=== PATIENT | female | born 1965 | race Caucasian/White ===

== ENCOUNTER → 2017-08-02 | Outpatient (CLI) | payer OTHER | LOC: FIMAGING 15:23 | PROVIDERS: ATTEND Obstetrics & Gynecology Gynecology | DX: Z12.31 Encounter for screening mammogram for malignant neoplasm of breast (principal) | CPT/HCPCS: G0202 ==

== ENCOUNTER → 2018-04-18 | Outpatient (CLI) | payer OTHER | LOC: BMCIMAGING 09:45 | PROVIDERS: ATTEND Obstetrics & Gynecology Gynecology | DX: N63.11 Unspecified lump in the right breast, upper outer quadrant (principal); R59.9 Enlarged lymph nodes, unspecified ==

== ENCOUNTER → 2018-04-26 | Outpatient (CLI) | payer OTHER ==
[~2018-04-26] MED LIST: BUPIVACAINE 0.25% 30 ML SDV ONE; LIDOCAINE 1% 300 MG/30 ML SDV ONE
== END ==
LOC: FIMAGING 09:23
PROVIDERS: ATTEND Obstetrics & Gynecology Gynecology
PROC: 0HBT3ZX Excision of Right Breast, Percutaneous Approach, Diagnostic (ICD-10-PCS; principal; 2018-04-26)
PROC: 07B53ZX Excision of Right Axillary Lymphatic, Percutaneous Approach, Diagnostic (ICD-10-PCS; principal; 2018-04-26)
DX: C50.411 Malignant neoplasm of upper-outer quadrant of right female breast (principal); C77.3 Secondary and unspecified malignant neoplasm of axilla and upper limb lymph nodes

== ENCOUNTER 2018-05-22 16:30 | Emergency (ER) | payer OTHER ==
--- NOTE | 2018-05-22 16:56 | CPEKG ---
Heart Rate: 79 RR Interval: 759 P-R Interval: 140 QRSD Interval: 86 QT Interval: 372 QTC Interval: 427 P [place]: 86 QRS [place]: 69 T Wave [place]: 67 EKG Severity - NORMAL ECG - EKG Impression: SINUS RHYTHM Electronically Signed By: Donnie Ibarra 22-May-2018 17:01:01
--- NOTE | 2018-05-22 17:00 | EDPHY ---
H & P Stated Complaint: l arm post placed /now with l sided chest tightness Time Seen by Provider: 05/22/18 16:43 HPI/ROS: CHIEF COMPLAINT: Left-sided chest tightness HISTORY OF PRESENT ILLNESS: The patient is a 52-year-old female whose recently diagnosed with right-sided breast cancer. In preparation for chemotherapy she received a port in her left biceps region on . She has had significant pain and bruising in the area. She is also no noticing some left chest pressure for the last day and half. She is concerned because her friend of a PE a few months ago. She has not had a fever. She denies history of cardiac or pulmonary disease. She is not on any medications. REVIEW OF SYSTEMS: Constitutional: denies: chills, fever, recent illness, recent injury EENTM: denies: blurred vision, double vision, nose congestion Respiratory: denies: cough, shortness of breath Cardiac: See HPI denies: chest pain, irregular heart rate, lightheadedness, palpitations Gastrointestinal/Abdominal: denies: abdominal pain, diarrhea, nausea, vomiting, blood streaked stools Genitourinary: denies: dysuria, frequency, hematuria, pain Musculoskeletal: denies: joint pain, muscle pain Skin: denies: lesions, rash, jaundice, bruising Neurological: denies: headache, numbness, paresthesia, tingling, dizziness, weakness Hematologic/Lymphatic: denies: blood clots, easy bleeding, easy bruising Immunologic/allergic: denies: HIV/AIDS, transplant EXAM: GENERAL: Well-appearing, well-nourished and in no acute distress. HEAD: Atraumatic, normocephalic. EYES: Pupils equal round and reactive to light, extraocular movements intact, sclera anicteric, conjunctiva are normal. ENT: TMs normal, nares patent, oropharynx clear without exudates. Moist mucous membranes. NECK: Normal range of motion, supple without lymphadenopathy or JVD. LUNGS: Breath sounds clear to auscultation bilaterally and equal. No wheezes rales or rhonchi. HEART: Regular rate and rhythm without murmurs, rubs or gallops. ABDOMEN: Soft, nontender, normoactive bowel sounds. No guarding, no rebound. No masses appreciated. BACK: No CVA tenderness, no spinal tenderness, step-offs or deformities EXTREMITIES: Left arm with port in place, significant bruising surrounding and mild tenderness, no erythema drainage or dehiscence. Normal range of motion, no pitting or edema. No clubbing or cyanosis. NEUROLOGICAL: Cranial nerves II through XII grossly intact. Normal speech, normal gait. 5/5 strength, normal movement in all extremities, normal sensation PSYCH: Normal mood, normal affect. SKIN: Warm, dry, normal turgor, no visible rashes or lesions. Source: Patient Exam Limitations: No limitations - Personal History LMP (Females 10-55): Post Menopausal Current Tetanus Diphtheria and Acellular Pertussis (TDAP): Unsure - Medical/Surgical History Hx Asthma: No Hx Chronic Respiratory Disease: No Hx Diabetes: No Hx Cardiac Disease: No Hx Renal Disease: No Hx Cirrhosis: No Hx Alcoholism: No Hx HIV/AIDS: No Hx Splenectomy or Spleen Trauma: No Other PMH: breast cancer - Family History Significant Family History: No pertinent family hx - Social History Smoking Status: Never smoked Alcohol Use: None Constitutional: Initial Vital Signs Temperature (C) 36.9 C 05/22/18 16:32 Heart Rate 102 H 05/22/18 16:32 Respiratory Rate 18 05/22/18 16:32 Blood Pressure 110/75 05/22/18 16:32 O2 Sat (%) 96 05/22/18 16:32 O2 Delivery Mode Room Air Allergies/Adverse Reactions: No Known Allergies Allergy (Unverified 05/22/18 16:32) Home Medications: Medication Instructions Recorded NK [No Known Home Meds] 05/22/18 Medical Decision Making - Diagnostics EKG Interpretation: An EKG obtained and was read and documented in trace view. Please see trace view for full reading and report. Sinus rhythm, no acute ischemic changes, no previous for comparison Imaging Results: Imaging Impressions Chest/Thorax CTA 05/22/18 17:01 Impression: 1. No evidence of thrombopulmonary embolic disease. 2. Possible minimal bronchitis. 3. Enlarged lymph nodes at the right axilla, compatible with the patient's recently diagnosed infiltrating ductal carcinoma seen with recent ultrasound and biopsy. Results called and discussed with Dr. Donnie Ibarra on May 22, 2018 at 1808 hours. Extremity Venous Study 05/22/18 18:04 Impression: Nonocclusive thrombus in the left axillary vein around the port catheter. Results called and discussed with Dr. Donnie Ibarra at 05/22/2018 19:00. Imaging: Discussed imaging studies w/ orthopedically impaired teacher Radiologist ED Course/Re-evaluation: The patient's chest CT is negative for PE. I did not immature left subclavian region. I will obtain ultrasound imaging. She has had this chest pressure for about 3 days. The negative troponin is reassuring in the setting. 7:00 p.m. We discussed the ultrasound results. I will consult with her surgeon Dr. Mancera in [place] to discuss aspirin versus anticoagulation etc 7:10 p.m. I discussed the case with Dr. Warren who is on-call for Dr. Mancera and agrees with aspirin and requests follow up with him in the morning. Differential Diagnosis: Partial list of the Differential diagnosis considered include but were not limited to; PE, acute coronary disease, thrombosis and although unlikely based on the history and physical exam, I also considered infection, arrhythmia, foreign body. I discussed these differential diagnoses and the plan with the patient as well as the usual and expected course. The patient understands that the diagnosis is provisional and that in medicine we are not always correct and that further workup is often warranted. Usual and customary warnings were given. All of the patient's questions were answered. The patient was instructed to return to the emergency department should the symptoms at all worsen or return, otherwise to followup with the physician as we discussed. - Data Points Laboratory Results: Laboratory Results 05/22/18 17:00 05/22/18 17:00 05/22/18 05/22/18 05/22/18 17:13 17:00 17:00 WBC RBC Hgb Hct MCV MCH MCHC RDW Plt Count MPV Neut % (Auto) Lymph % (Auto) [place] % (Auto) Eos % (Auto) Baso % (Auto) Nucleat RBC Rel Count Absolute Neuts (auto) Absolute Lymphs (auto) Absolute Monos (auto) Absolute Eos (auto) Absolute Basos (auto) Absolute Nucleated RBC Immature Gran % Immature Gran # PT 13.0 SEC SEC (12.0-15.0) INR 0.96 (0.83-1.16) APTT 29.3 SEC SEC (23.0-38.0) Sodium 141 mEq/L mEq/L (135-145) Potassium 4.3 mEq/L mEq/L (3.3-5.0) Chloride 103 mEq/L mEq/L (97-110) Carbon Dioxide 23 mEq/l mEq/l (22-31) Anion Gap 15 mEq/L mEq/L (8-16) BUN 10 mg/dL mg/dL (7-23) Creatinine 1.0 mg/dL mg/dL (0.6-1.0) Estimated GFR 59 Glucose 98 mg/dL mg/dL (70-100) Calcium 9.7 mg/dL mg/dL (8.5-10.4) POC Troponin I 0.00 ng/mL ng/mL (0.00-0.08) 05/22/18 17:00 WBC 7.16 10^3/uL 10^3/uL (3.80-9.50) RBC 4.59 10^6/uL 10^6/uL (4.18-5.33) Hgb 13.6 g/dL g/dL (12.6-16.3) Hct 40.0 % % (38.0-47.0) MCV 87.1 fL fL (81.5-99.8) MCH 29.6 pg pg (27.9-34.1) MCHC 34.0 g/dL g/dL (32.4-36.7) RDW 12.2 % % (11.5-15.2) Plt Count 281 10^3/uL 10^3/uL (150-400) MPV 10.7 fL fL (8.7-11.7) Neut % (Auto) 69.5 % % (39.3-74.2) Lymph % (Auto) 21.5 % % (15.0-45.0) [place] % (Auto) 6.3 % % (4.5-13.0) Eos % (Auto) 1.7 % % (0.6-7.6) Baso % (Auto) 0.7 % % (0.3-1.7) Nucleat RBC Rel Count 0.0 % % (0.0-0.2) Absolute Neuts (auto) 4.98 10^3/uL 10^3/uL (1.70-6.50) Absolute Lymphs (auto) 1.54 10^3/uL 10^3/uL (1.00-3.00) Absolute Monos (auto) 0.45 10^3/uL 10^3/uL (0.30-0.80) Absolute Eos (auto) 0.12 10^3/uL 10^3/uL (0.03-0.40) Absolute Basos (auto) 0.05 10^3/uL 10^3/uL (0.02-0.10) Absolute Nucleated RBC 0.00 10^3/uL 10^3/uL (0-0.01) Immature Gran % 0.3 % % (0.0-1.1) Immature Gran # 0.02 10^3/uL 10^3/uL (0.00-0.10) PT INR APTT Sodium Potassium Chloride Carbon Dioxide Anion Gap BUN Creatinine Estimated GFR Glucose Calcium POC Troponin I Medications Given: Discontinued Medications Aspirin (Aspirin) 325 mg PO EDNOW ONE Stop: 05/22/18 19:11 Last Admin: 05/22/18 19:22 Dose: 325 mg Sodium Chloride (Ns) 1,000 mls @ 0 mls/hr IV EDNOW ONE; Wide Open PRN Reason: Protocol Stop: 05/22/18 17:02 Last Admin: 05/22/18 17:12 Dose: 1,000 mls Point of Care Test Results: Chemistry 05/22/18 17:13 POC Troponin I 0.00 ng/mL ng/mL (0.00-0.08) Departure - Departure Disposition: Home, Routine, Self-Care Clinical Impression: Chest pain Qualifiers: Chest pain type: unspecified Qualified Code(s): R07.9 - Chest pain, unspecified Acute thrombosis of arm Qualifiers: Laterality: left Qualified Code(s): I82.602 - Acute embolism and thrombosis of unspecified veins of left upper extremity Condition: Fair Instructions: Deep Vein Thrombosis (ED) Additional Instructions: Take aspirin 325 daily until you follow up with Dr. Mancera tomorrow morning. Referrals: NONE *PRIMARY CARE P,. [Primary Care Provider] - As per Instructions
[2018-05-22] MEDS ORDERED: NS 1,000 ML IV ONE (17:01)
[2018-05-22 17:12] LABS: PLATELET COUNT 281 10^3/uL (150-400)
[2018-05-22 17:20] LABS: INR 0.96 (0.83-1.16)
[2018-05-22] MEDS ORDERED: IOPAMIDOL (ISOVUE 370) 100 ML BTL IV ONE (17:27)
[2018-05-22] MEDS ORDERED: ASPIRIN 325 MG TAB PO ONE (19:10)
[2018-05-22 19:43] VITALS: BP 107/72
== END 2018-05-22 19:43 | disposition home or self-care (01) ==
DX: R07.9 Chest pain, unspecified (principal); I82.602 Acute embolism and thrombosis of unspecified veins of left upper extremity; E86.9 Volume depletion, unspecified
CPT/HCPCS: 84484-PO; Q9967